=== PATIENT | female | born 1955 | race Caucasian/White ===

== ENCOUNTER 2016-10-26 07:25 | Day surgery (SDC) | payer BC, OTHER ==
[~2016-10-26 07:25] MED LIST: LIDOCAINE HCL 1% MPF SOL ONE; PROPOFOL 500 MG/50 ML EMU IV ONE
[2016-10-26 07:53] VITALS: TEMP 97.2
[2016-10-26 09:45] VITALS: RESP 20
[2016-10-26 09:58] VITALS: BP 159/87; PULSE 57; O2SAT 100
== END 2016-10-26 10:15 | disposition home or self-care (01) ==
LOC: SURG 07:25
PROVIDERS: ATTEND Internal Medicine Gastroenterology
DX: Z12.11 Encounter for screening for malignant neoplasm of colon (principal); Z86.010 Personal history of colon polyps; K57.30 Diverticulosis of large intestine without perforation or abscess without bleeding; K63.5 Polyp of colon; K64.8 Other hemorrhoids
CPT/HCPCS: 45380; 99001; J2001; J2704

== ENCOUNTER 2017-10-06 10:10 | Outpatient (CLI) | payer BC ==
[2016-10-26 09:58] VITALS: O2SAT 100
== END 2017-10-06 10:11 | disposition home or self-care (01) ==
LOC: CONVCARE 10:10
PROVIDERS: ATTEND Orthopaedic Surgery
DX: S62.617D Displaced fracture of proximal phalanx of left little finger, subsequent encounter for fracture with routine healing (principal)
CPT/HCPCS: 73140

== ENCOUNTER 2017-11-10 07:38 | Outpatient (CLI) | payer BC ==
[2016-10-26 09:58] VITALS: O2SAT 100
== END 2017-11-10 07:39 | disposition home or self-care (01) ==
LOC: CONVCARE 07:38
PROVIDERS: ATTEND Orthopaedic Surgery
DX: S62.607D Fracture of unspecified phalanx of left little finger, subsequent encounter for fracture with routine healing (principal); Z51.89 Encounter for other specified aftercare
CPT/HCPCS: 73140